=== PATIENT | female | born 1980 | race Caucasian/White ===

== ENCOUNTER 2023-10-19 20:43 | Emergency (ER) | payer OTHER, SELFPAY ==
[2023-10-19 20:45] VITALS: BP 131/79
[2023-10-19 21:50] VITALS: BMI 20.1
--- NOTE | 2023-10-19 22:54 | ED.GENMED ---
History of Present Illness
General
Chief Complaint: Eye Problems
Time Seen by Provider: 10/19/23 22:23
Travel History
Have you had any contact with someone who has COVID-19?: No
Do you have any symptoms of coronavirus? Fever > 100 degrees, chills, cough, shortness of breath, sore throat, loss of taste or smell, muscle aches, or headache?: No
History of Present Illness
History of Present Illness:
43-year-old female presents to the emergency department for evaluation of right eye discomfort and blurry vision after being accidentally kicked in the eye by her son. She does not wear contact lenses. No headaches or vomiting.
Review of Systems
Review of Systems
Allergies reviewed?: Yes
All Other Systems: ROS reviewed and negative except as documented in HPI and ROS
Phy Exam
Physical Exam
Physical Exam:
GEN: Well appearing, NAD, WDWN
HEENT: Oral mucosa moist, no scleral icterus
Eyes: Minimal injection to the right conjunctiva, no hyphema, normal extraocular motions bilaterally without deficit. Mild photophobic response to light on the right. IOP measured by Celso-Pen is 13 on the right. No fluorescein uptake or evidence
for corneal abrasion. Visual acuity OD 20/25, OS 20/25, OU 20/25
Cardiac: Regular rate
Lung: No respiratory distress, no tachypnea
MSK: No gross deformity or injuries
Skin: Good color, no pallor or jaundice, no rashes
Neuro: AO x3, moves all extremities freely
Psych: Calm, cooperative
Course
Orders/Labs/Results
Orders:
Orders
10/19/23 22:35
Tetracaine HCl [Tetracaine 0.5% Ophthalmic Solution] 1 drop .ROUTE .STK-MED ONE
10/19/23 23:09
Tetracaine HCl [Tetracaine 0.5% Ophthalmic Solution] 1 drop .ROUTE .STK-MED ONE
Vital Signs
Initial and Last Documented VS:
Initial Vital Signs
Temp Pulse Resp BP Pulse Ox
98.7 F 64 18 131/79 98
10/19/23 20:45 10/19/23 20:45 10/19/23 20:45 10/19/23 20:45 10/19/23 20:45
Last Documented Vital Signs
Temp Pulse Resp BP Pulse Ox
98.7 F 64 18 131/79 98
10/19/23 20:45 10/19/23 20:45 10/19/23 20:45 10/19/23 20:45 10/19/23 20:45
MDM/Problems Addressed
MDM/Problems Addressed:
Exam is grossly benign, intraocular pressure is normal, visual acuity is normal, patient displays normal extraocular motion with no evidence for hyphema. Discussed supportive care. No indication for facial or orbital imaging
*Critical Care Note
Total Time (30-74mins, 75-104mins- exclusive of procedures): Not Applicable
ED Attending Note
-
Portions of this chart may have been created with voice recognition software.� Occasional wrong word or��sound alike� substitutions may have occurred due to the inherent limitations of voice recognition software.
Discharge Plan
Departure
Patient Disposition: Home (Routine Discharge)
Date of Disposition: 10/19/23
Time of Disposition: 22:56
Patient with high blood pressure during this ER visit?: No
Discharge Problem:
Contusion of eye
Instructions: Eye Contusion (DC)
Prescriptions:
No Action
CAPSULE
1 mg PO DAILY
ibuprofen 600 MG tablet
600 mg PO Q4HPRN PRN (Reason: moderate pain/cramps) Qty: 0 0RF
Referrals:
PRIVATE,PHYSICIAN [Family Provider] -
Activity Restrictions/Additional Instructions:
Return if your vision worsens
Interventions
Interventions:
*Risk Screen - Suicide Last Done: 10/19/23 20:45
*General Assessment Last Done: 10/19/23 20:45
*Neglect/Abuse Screening Last Done: 10/19/23 20:45
ED- Fall Risk Assessment Last Done: 10/19/23 21:49
*ED COVID-19 Vaccine History Last Done: 10/19/23 20:45
*Nursing Disposition Last Done: 10/19/23 23:22
Discharge Date and Time
Discharge Date/Time: 10/19/23 23:10
Print Language: SLOVAK
== END 2023-10-19 23:10 | disposition home or self-care (01) ==
LOC: EMR 20:43
PROVIDERS: EMERGENCY PHYSICIAN Student in an Organized Health Care Education/Training Program
DX: S00.11XA Contusion of right eyelid and periocular area, initial encounter (principal); W50.1XXA Accidental kick by another person, initial encounter
CPT/HCPCS: 99282

== ENCOUNTER → 2023-12-18 06:25 | Day surgery (SDC) | payer OTHER, SELFPAY | LOC: GI 06:25 | PROVIDERS: ATTENDING PHYSICIAN Internal Medicine Gastroenterology | DX: J02.9 Acute pharyngitis, unspecified (principal); K44.9 Diaphragmatic hernia without obstruction or gangrene; R12 Heartburn | CPT/HCPCS: 43235 ==

== ENCOUNTER → 2024-05-07 11:37 | Outpatient (REF) | payer OTHER, SELFPAY | LOC: WDC 11:37 | PROVIDERS: ATTENDING PHYSICIAN Student in an Organized Health Care Education/Training Program | DX: Z12.31 Encounter for screening mammogram for malignant neoplasm of breast (principal) | CPT/HCPCS: 77063; 77067 ==

== ENCOUNTER → 2025-05-11 07:30 | Outpatient (REF) | payer BC, SELFPAY | LOC: WDC 07:30 | PROVIDERS: ATTENDING PHYSICIAN Family Medicine | DX: Z12.31 Encounter for screening mammogram for malignant neoplasm of breast (principal) | CPT/HCPCS: 77063; 77067 ==